=== PATIENT | female | born 1980 | race Caucasian/White ===

== ENCOUNTER 2021-07-23 09:50 | Outpatient (CLI) | payer BC, SELFPAY ==
--- NOTE | ~2021-07-23 | MM_ITS ---
EXAMINATION: MM scrn jazz implant BI w edilma HISTORY: Screening mammogram TECHNIQUE: Craniocaudal and mediolateral oblique 3-D tomosynthesis images with implant displacement a nd synthetic 2-D images were generated. Craniocaudal and mediolateral oblique views of the breasts wi thout implant displacement were obtained using full field digital mammography. CAD analysis was submi tted and interpreted. COMPARISON: None, baseline BREAST PARENCHYMAL COMPOSITION: The breasts are extremely dense, which lowers the sensitivity of mamm ography. FINDINGS: There is no evidence of suspicious mass, calcification, or architectural distortion to sugg est malignancy in either breast. IMPRESSION: 1. No mammographic evidence of malignancy. 2. Recommend routine screening mammography in one year. BI-RADS Category 1: Negative Reviewed, dictated and finalized at location D. R [employer]KE [employer]IC
== END 2021-07-23 09:51 | disposition home or self-care (01) ==
LOC: ANHIMG 09:54
PROVIDERS: PCP Nurse Practitioner Family; Visit Provider Obstetrics & Gynecology
DX: Z12.31 Encounter for screening mammogram for malignant neoplasm of breast (principal)
CPT/HCPCS: 77063; 77067

== ENCOUNTER 2024-06-30 12:26 | Outpatient (CLI) | payer BC, SELFPAY ==
--- NOTE | ~2024-06-30 | MM_ITS ---
EXAMINATION: MM screening jazz BI w edilma HISTORY: Screening TECHNIQUE: Craniocaudal and mediolateral oblique 3-D tomosynthesis images were obtained and synthetic 2-D images were generated. CAD analysis was submitted and interpreted. COMPARISON: 07/23/2021 BREAST PARENCHYMAL COMPOSITION: Dense: The breasts are heterogeneously dense, which may obscure small masses FINDINGS: There is no evidence of suspicious mass, calcification, or architectural distortion to sugg est malignancy in either breast. There has been no suspicious interval change. IMPRESSION: 1. No mammographic evidence of malignancy. 2. Recommend routine screening mammography in one year. BI-RADS Category 1: Negative Reviewed, dictated and finalized at location B.
== END 2024-06-30 12:27 | disposition home or self-care (01) ==
LOC: MICIMG 12:27
PROVIDERS: PCP Obstetrics & Gynecology; Visit Provider Obstetrics & Gynecology
DX: Z12.31 Encounter for screening mammogram for malignant neoplasm of breast (principal)
CPT/HCPCS: 77063; 77067

== ENCOUNTER 2025-01-26 13:38 | Outpatient (CLI) | payer BC, SELFPAY ==
--- NOTE | ~2025-01-26 | XR_ITS ---
XR hand RT 2V Ordering provider: Anali Cosby, PA History: . Rheumatoid arthritis with rheumatoid factor, unspecified . Comparison: None. FINDINGS: BONES: No acute fracture or dislocation. JOINT SPACES: Subarticular erosion is seen laterally at the base of the proximal phalanx of the secon d finger. SOFT TISSUES: Soft tissue swelling laterally in the area of the second metacarpophalangeal joint. IMPRESSION: No acute osseous abnormality right hand. Erosive changes with soft tissue swelling at the base of the proximal phalanx of the second finger la terally which may indicate rheumatoid arthritis. Follow-up and clinical correlation advised. Reviewed, dictated and finalized at location A. IMPRESSION: No acute osseous abnormality right hand. Erosive changes with soft tissue swelling at the base of the proximal phalanx o f the second finger laterally which may indicate rheumatoid arthritis. Follow-u p and clinical correlation advised.
--- NOTE | ~2025-01-26 | XR_ITS ---
XR shoulder LT min 2V 01/26/2025 14:07 Indication: Rheumatoid arthritis Procedure: 4 views left shoulder Comparison: No prior studies for comparison. Findings: No fracture, subluxation or dislocation. No soft tissue abnormality. No foreign bodies. Damon rington rods in the thoracic spine partially visualized. Impression: 1: No significant bone or joint abnormality. Reviewed, dictated and finalized at location B. Impression: 1: No significant bone or joint abnormality.
--- NOTE | ~2025-01-26 | XR_ITS ---
HISTORY: Rheumatoid arthritis with rheumatoid factor, unspecified COMPARISON: None TECHNIQUE: 2 views of the right foot were performed FINDINGS: No acute fracture or dislocation is appreciated. Marginal erosions are identified within the distal margin of the metatarsals. Trace periarticular osteopenia is present. The base of the fifth metatarsal is intact. A small calcaneal spur is noted. Soft tissue swelling along the dorsum of the forefoot is also noted. Swelling over the distal margin of the fifth metatarsal proximal phalangeal joint. IMPRESSION: No acute fracture or dislocation. Reviewed, dictated and finalized at location A.
--- NOTE | ~2025-01-26 | XR_ITS ---
XR hand LT 2V Ordering provider: Anali Cosby, PA History: . Rheumatoid arthritis with rheumatoid factor, unspecified . Comparison: None. FINDINGS: BONES: No acute fracture or dislocation. Minimal periarticular osteopenia. JOINT SPACES: erosive area seen at the base of the proximal phalanx of the second finger laterally wh ich may indicate rheumatoid arthritis. SOFT TISSUES: Soft tissue swelling over the second metacarpophalangeal joint. IMPRESSION: No acute osseous abnormality left hand. Erosive area at the base of the proximal phalanx of the second finger with soft tissue swelling seen laterally. Rheumatoid arthritis is highly suggestive. Clinical correlation and follow-up advised. Reviewed, dictated and finalized at location A. IMPRESSION: No acute osseous abnormality left hand. Erosive area at the base of the proximal phalanx of the second finger with soft tissue swelling seen laterally. Rheumatoid arthritis is highly suggestive. Cli nical correlation and follow-up advised.
--- NOTE | ~2025-01-26 | XR_ITS ---
XR shoulder RT min 2V 01/26/2025 14:07 Indication: Rheumatoid arthritis Procedure: 4 views right shoulder Comparison: No prior studies for comparison. Findings: There is anatomic alignment. No fracture, subluxation or dislocation. No erosive changes. N o fracture or traumatic malalignment. No foreign bodies. Impression: 1: No significant bone or joint abnormality. Reviewed, dictated and finalized at location B. Impression: 1: No significant bone or joint abnormality.
--- NOTE | ~2025-01-26 | XR_ITS ---
HISTORY: Rheumatoid arthritis with rheumatoid factor, unspecified COMPARISON: None TECHNIQUE: 2 views of the left foot were performed FINDINGS: No acute fracture or dislocation is appreciated. Marginal erosion is noted within the peripheral portion of the fifth metatarsal.. The base of the fifth metatarsal is intact. Large calcaneal spur is noted. No significant soft tissue swelling is present. IMPRESSION: Marginal erosions with a large calcaneal spur. No acute fracture is noted. Reviewed, dictated and finalized at location A.
== END 2025-01-26 13:39 | disposition home or self-care (01) ==
LOC: MICIMG 13:39
PROVIDERS: PCP Physician Assistant Medical; Visit Provider Physician Assistant Medical
DX: M05.9 Rheumatoid arthritis with rheumatoid factor, unspecified (principal)
CPT/HCPCS: 73030; 73120; 73620